=== PATIENT | male | born 1965 | race Caucasian/White ===

== ENCOUNTER 2016-05-29 02:47 | Inpatient (IN) | payer BC ==
[~2016-05-29] VITALS: Ht 177.8 cm; Wt 83.8 kg
[~2016-05-29 02:47] MED LIST: ANTIVERT25 MG PO; ASPIR 8181 M1 PO; CENTRUM SILVER1 EAC1 PO; FOLIC ACID1 MG PO; LEVEMIR FL100 UNITS/ SC; LEVOTHYROXINE200 MC1 PO; LEVOTHYROXINE25 MCG PO; LISINOPRIL20 MG PO; METFORMIN HCL1000 MG PO; METOPROLOL SUCC50 MG PO; MOTRIN600 MG PO; NYSTATIN15 GM TP; NYSTOP60 GM TP; OMEGA-31000 M1 PO; PERCOCET 5/31 TABLET PO; SIMVASTATIN10 MG PO; ULTRAM50 MG PO; VALIUM5 MG PO; ZOFRAN ODT4 MG PO; ZOFRAN4 MG PO
[2016-05-29 03:17] LABS: HEMATOCRIT 40.7 % (38.0-50.0); MCH 29.3 PG (29.0-34.0); MCHC 33.9 G/DL (30.0-36.0); MCV 86.4 FL (86-99); PLATELET COUNT 348 K/uL (156-360); RBC DIS.WIDTH-CV 11.7 % (11.8-14.6); RBC DIS.WIDTH-SD 36.9 % (39-53); RED BLOOD COUNT 4.71 M/uL (4.00-5.50); WHITE BLOOD COUNT 11.2 K/uL (4.1-10.2)
[2016-05-29 03:28] LABS: CHLORIDE 94 mEq/L (99-109); POTASSIUM 3.9 mEq/L (3.7-5.4); SODIUM 130 mEq/L (136-147)
[2016-05-29 03:33] LABS: GFR ESTIMATE (CALCULATED) > 59 mL/min/
[2016-05-29 03:34] LABS: UREA NITROGEN (BUN) 18 mg/dL (9-23)
[2016-05-29 03:38] LABS: TROP-I INTERPRETATION NEGATIVE; TROPONIN-I < 0.01 ng/mL (0.0-0.30)
[2016-05-29 03:44] LABS: ANION GAP 12 MEQ/L (2-14)
[2016-05-29 03:45] LABS: TOTAL BILIRUBIN 0.7 mg/dL (0.0-1.0)
[2016-05-29 03:47] LABS: ALKALINE PHOSPHATASE 97 IU/L (3-129)
[2016-05-29 03:49] LABS: DIRECT BILIRUBIN 0.2 mg/dL (0.0-0.3)
[2016-05-29 03:50] LABS: LIPASE 47 U/L (1.0-51.0)
[2016-05-29 03:55] LABS: GLUCOSE 508 mg/dL (70-99)
[2016-05-29 07:39] VITALS: BP 150/89
[2016-05-29 08:08] LABS: ADD MIUA? NO; BILIRUBIN NEGATIVE; BLOOD NEGATIVE; COLOR YELLOW ((YELLOW)); GLUCOSE (STRIP) >=500; KETONES 5; LEUKOCYTES NEGATIVE; NITRITE NEGATIVE; PROTEIN (STRIP) NEGATIVE; SPECIFIC GRAVITY 1.028 (1.000-1.030); UROBILINOGEN 0.2 MG/DL (0.2-1.0)
[2016-05-29 08:08] LABS: Estimated Average Glucose 395 mg/dL (70-123)
[2016-05-29 08:29] LABS: HEMOGLOBIN A1c (GLYCOHEMOGLOB) 15.4 % HGB (Below 5.7)
[2016-05-29 09:58] LABS: TROP-I INTERPRETATION NEGATIVE; TROPONIN-I < 0.01 ng/mL (0.0-0.30)
[2016-05-29 11:12] LABS: ALKALINE PHOSPHATASE 75 IU/L (3-129); ANION GAP 8 MEQ/L (2-14); CHLORIDE 99 MEQ/L (99-109); GFR ESTIMATE (CALCULATED) > 59 mL/min/; GLUCOSE 312 mg/dL (70-99); HDL CHOLESTEROL 26 MG/DL (Desirable>=40); LDL CHOLESTEROL 95 mg/dL (Desirable<100); MAGNESIUM 1.6 mg/dl (1.3-2.7); NON-HDL CHOLESTEROL 119 mg/dL (Desirable<160); POTASSIUM 4.2 MEQ/L (3.7-5.4); SAMPLE HEMOLYSIS CHECK 0; SAMPLE ICTERIC CHECK 0; SAMPLE LIPEMIA CHECK 0; SODIUM 136 MEQ/L (136-147); TOTAL BILIRUBIN 0.6 MG/DL (0.0-1.0); TOTAL CHOLESTEROL 145 mg/dL (Desirable<200); TRIGLYCERIDES 120 MG/DL (Normal: <150); UREA NITROGEN (BUN) 14 mg/dL (9-23)
[2016-05-29 12:28] VITALS: BP 128/80
[2016-05-29 12:41] LABS: POINT-OF-CARE METER ID UU13113700
[2016-05-29 16:14] VITALS: BP 132/77
[2016-05-29 16:26] LABS: TROP-I INTERPRETATION NEGATIVE; TROPONIN-I < 0.01 ng/mL (0.0-0.30)
[2016-05-29 19:20] VITALS: BP 131/84
[2016-05-29 21:23] LABS: POINT-OF-CARE METER ID UU13113831
[2016-05-30 07:24] VITALS: BP 126/83
[2016-05-30 08:57] LABS: MCH 29.2 PG (29.0-34.0); MCV 88.5 FL (86-99); MEAN PLAT.VOLUME 10.1 uM^3 (9.0-12.4); PLATELET COUNT 332 K/uL (156-360); RBC DIS.WIDTH-CV 11.9 % (11.8-14.6); RBC DIS.WIDTH-SD 38.3 % (39-53); RED BLOOD COUNT 4.86 M/uL (4.00-5.50); WHITE BLOOD COUNT 11.1 K/uL (4.1-10.2)
[2016-05-30 09:22] LABS: ANION GAP 8 MEQ/L (2-14); CHLORIDE 102 MEQ/L (99-109); GFR ESTIMATE (CALCULATED) > 59 mL/min/; POTASSIUM 4.3 MEQ/L (3.7-5.4); SAMPLE HEMOLYSIS CHECK 0; SAMPLE ICTERIC CHECK 0; SAMPLE LIPEMIA CHECK 0; SODIUM 138 MEQ/L (136-147); UREA NITROGEN (BUN) 11 mg/dL (9-23)
[2016-05-30 09:25] LABS: GLUCOSE 134 mg/dL (70-99)
[2016-05-30 11:28] VITALS: BP 138/88
[2016-05-30 12:13] LABS: POINT-OF-CARE METER ID UU14162508
[2016-05-30] MEDS ORDERED: LO-DOSE ASPIRIN81 M2 PO (15:21)
[2016-05-30] MEDS ORDERED: TYLENOL PM1 CAPLET PO (15:22)
[2016-05-30 16:03] VITALS: BP 133/88
[2016-05-30 16:13] LABS: POINT-OF-CARE METER ID UU14162508
[2016-05-30 20:00] VITALS: BP 124/88
[2016-05-31] MEDS ORDERED: LISINOPRIL5 MG PO (07:12)
[2016-05-31] MEDS ORDERED: LEVEMIR100 UNIT/2 SC (07:12)
[2016-05-31] MEDS ORDERED: LOPRESSOR25 MG PO (07:12)
[2016-05-31] MEDS ORDERED: METFORMIN HCL500 MG PO (07:12)
[2016-05-31] MEDS ORDERED: ATORVASTATIN CA80 MG PO (07:12)
[2016-05-31] MEDS ORDERED: NITROSTAT0.4 MG SL (07:12)
[2016-05-31 07:40] LABS: ANION GAP 7 MEQ/L (2-14); CHLORIDE 99 MEQ/L (99-109); GFR ESTIMATE (CALCULATED) > 59 mL/min/; POTASSIUM 3.9 MEQ/L (3.7-5.4); SAMPLE HEMOLYSIS CHECK 0; SAMPLE ICTERIC CHECK 0; SAMPLE LIPEMIA CHECK 0; SODIUM 134 MEQ/L (136-147); UREA NITROGEN (BUN) 10 mg/dL (9-23)
[2016-05-31 07:41] LABS: GLUCOSE 213 mg/dL (70-99)
[2016-05-31 07:50] VITALS: BP 153/93; BP 156/77
== END 2016-05-31 09:58 | disposition hospice, inpatient (51) | DRG 638 ==
LOC: EME → EDBD 02:47 → EME 02:47 → 5WEST 05:28 → EDOF 05:28 → 2EASTP 05:28 → 5WEST 07:18 → 2EASTP 22:16
PROVIDERS: Emergency Medicine; Hospitalist; Internal Medicine; Physician Assistant Medical
DX: E11.65 Type 2 diabetes mellitus with hyperglycemia (principal); E87.1 Hypo-osmolality and hyponatremia; Z91.19 Patient's noncompliance with other medical treatment and regimen; I10 Essential (primary) hypertension; E78.5 Hyperlipidemia, unspecified; L40.50 Arthropathic psoriasis, unspecified; R07.89 Other chest pain
CPT/HCPCS: 71010; 80048; 80053; 80061; 80076; 81003; 82010; 82948; 83036; 83690; 83735; 84439; 84443; 84484; 85027; 93005; 99281; 99285; J1650; J1815; J1885; J2405; J3480; J7030